=== PATIENT | female | born 1995 | race Caucasian/White ===

== ENCOUNTER → 2017-08-13 | Outpatient (CLI) | payer BC, MEDICAID | LOC: COL.RAD 13:47 | DX: O34.01 Maternal care for unspecified congenital malformation of uterus, first trimester (principal); Q51.3 Bicornate uterus; Z3A.10 10 weeks gestation of pregnancy ==

== ENCOUNTER 2018-01-31 21:31 | Outpatient (CLI) | payer MEDICAID ==
[~2018-01-31] VITALS: Ht 157.5 cm; Wt 71.8 kg
[2018-01-31 21:37] VITALS: PULSE 100
[2018-01-31 21:51] VITALS: BP 116/70; PULSE 100
[2018-01-31] MEDS ORDERED: PRENATAL VITAMI1 TA3 PO (21:58)
[2018-01-31] MEDS ORDERED: SLOW FE142 MG PO (21:59)
[2018-01-31] MEDS ORDERED: CALCIUM CARBON650 M2 (22:00)
[2018-01-31 22:15] VITALS: BP 105/66; PULSE 93
[2018-01-31 22:50] VITALS: BP 108/75; PULSE 96
[2018-01-31 23:15] VITALS: BP 110/70; BP 99/59; PULSE 86; PULSE 93
[2018-02-01 00:15] VITALS: BP 111/68; PULSE 92
== END 2018-02-01 00:39 | disposition home or self-care (01) ==
LOC: LDRO 21:31
DX: O34.03 Maternal care for unspecified congenital malformation of uterus, third trimester (principal); Z3A.34 34 weeks gestation of pregnancy
CPT/HCPCS: J0702; J7120

== ENCOUNTER 2018-03-01 05:35 | Inpatient (IN) | payer MEDICAID ==
[~2018-03-01] VITALS: Ht 158.8 cm; Wt 77.3 kg
[2018-03-01] VITALS (18 sets, daily range): BP systolic 107–137; BP diastolic 57–84; PULSE 84–116; TEMP 97.2–99.9
[~2018-03-01 05:35] MED LIST: CALCIUM CARBON650 M2; PRENATAL VITAMI1 TA3 PO; SLOW FE142 MG PO
[2018-03-01] MEDS ORDERED: COLACE 100100 MG/CAP PO (06:19)
[2018-03-01 06:28] LABS: BASO % 0.3 % (0.0-2.0); EOS # 0.1 (0.0-0.7); EOS % 1.2 % (0-4.0); GRAN # 8.2 (1.4-6.5); GRAN % 70.8 % (42.2-75.2); HEMOGLOBIN 10.9 g/dl (12.5-16.0); LYMPH # 2.3 (1.2-3.4); LYMPH % 20.1 % (20.0-51.0); MEAN CELL VOLUME 95 fl (80.0-100.0); MEAN CORPUSCULAR HEMOGLOBIN 33 pg (27.0-31.0); MEAN CORPUSCULAR HGB CONC 34 g/dl (33.0-37.0); MEAN PLATELET VOLUME 10.2 fl (7.4-10.4); MONO # 0.8 (0.1-0.6); PLATELET COUNT 265 K/mm3 (130-400); RED BLOOD COUNT 3.34 M/mm3 (4.10-5.30); REDCELL DISTRIBUTION WIDTH-CV 12.2 % (11.5-14.5)
[2018-03-01 06:29] LABS: HEMATOCRIT 31.8 % (37.0-47.0)
[2018-03-02 07:11] LABS: BASO % 0.4 % (0.0-2.0); EOS # 0.1 (0.0-0.7); EOS % 1.3 % (0-4.0); GRAN % 62.4 % (42.2-75.2); LYMPH # 3.2 (1.2-3.4); LYMPH % 28.6 % (20.0-51.0); MEAN CELL VOLUME 99 fl (80.0-100.0); MEAN CORPUSCULAR HGB CONC 34 g/dl (33.0-37.0); MEAN PLATELET VOLUME 9.8 fl (7.4-10.4); MONO # 0.8 (0.1-0.6); MONO % 6.8 % (1.7-9.3); PLATELET COUNT 224 K/mm3 (130-400); RED BLOOD COUNT 2.88 M/mm3 (4.10-5.30); REDCELL DISTRIBUTION WIDTH-CV 12.6 % (11.5-14.5)
[2018-03-02 07:15] LABS: HEMATOCRIT 28.4 % (37.0-47.0); HEMOGLOBIN 9.5 g/dl (12.5-16.0); MEAN CORPUSCULAR HEMOGLOBIN 33 pg (27.0-31.0)
[2018-03-02 08:02] VITALS: BP 118/70; PULSE 93
[2018-03-02 16:00] VITALS: BP 107/56; PULSE 88
[2018-03-02 20:45] VITALS: BP 129/78; PULSE 102; TEMP 98.8
[2018-03-03] MEDS ORDERED: PERCOCET 325 MG1 TA2 PO (08:02)
[2018-03-03] MEDS ORDERED: MOTRIN 800800 MG/TAB PO (08:02)
[2018-03-03 08:30] VITALS: BP 127/78; PULSE 84; TEMP 98.7
== END 2018-03-03 12:50 | disposition home or self-care (01) | DRG 788 ==
LOC: OB 05:35 → LDR 06:26 → OB 03-03 12:50
PROVIDERS: Obstetrics & Gynecology
PROC: 10D00Z1 Extraction of Products of Conception, Low, Open Approach (ICD-10-PCS; principal; 2018-03-01)
DX: O32.1XX0 Maternal care for breech presentation, not applicable or unspecified (principal); Z3A.38 38 weeks gestation of pregnancy; Z37.0 Single live birth; Q51.20 Other doubling of uterus, unspecified; Q51.3 Bicornate uterus; O99.02 Anemia complicating childbirth; D64.9 Anemia, unspecified; L25.8 Unspecified contact dermatitis due to other agents; O69.81X0 Labor and delivery complicated by cord around neck, without compression, not applicable or unspecified
CPT/HCPCS: J0690; J1885; J2175; J2270; J2370; J2405; J2590; J7120

== ENCOUNTER 2021-10-28 05:30 | Inpatient (IN) | payer MEDICAID ==
[~2021-10-28] VITALS: Ht 157.5 cm; Wt 79.5 kg
[2021-10-28] VITALS (18 sets, daily range): BP systolic 94–128; BP diastolic 57–88; PULSE 76–112; TEMP 97.6–98.6
[~2021-10-28 05:30] MED LIST changes: +ANUSOL-HC2.5% RC; +COLACE 100100 MG/CAP PO; +MOTRIN 800800 MG/TAB PO; +PERCOCET 325 MG1 TA2 PO
--- NOTE | 2021-10-28 05:35 | NUR ---
0535- PT PRESENTS TO LDR FOR SCHEDULED REPEAT , AMBULATORY TO ROOM 210. CHANGED INTO GOWN. 0556- EFM MONITORS X2 APPLIED. PLAN OF CARE DISCUSSED AND QUESTIONS ANSWERED. CONSENTS SIGNED. 0600- IV START TO RIGHT WRIST AFTER 5 ATTEMPTS. BLOOD DRAWN FOR LAB. LR INFUSING ORDERED.
[2021-10-28 06:37] LABS: BASO % 0.2 % (0.0-2.0); EOS % 0.4 % (0.0-4.0); GRAN # 5.8 K/mm3 (1.4-6.5); GRAN % 67.8 % (42.2-75.2); HEMOGLOBIN 11.4 g/dl (12.5-16.0); LYMPH # 2.1 K/mm3 (1.2-3.4); LYMPH % 24.4 % (20.0-51.0); MEAN CELL VOLUME 92 fl (80.0-100.0); MEAN CORPUSCULAR HEMOGLOBIN 31 pg (27-31); MEAN CORPUSCULAR HGB CONC 34 g/dl (33.0-37.0); MEAN PLATELET VOLUME 9.9 fl (7.4-10.4); MONO # 0.6 K/mm3 (0.1-0.6); MONO % 6.7 % (1.7-9.3); PLATELET COUNT 275 K/mm3 (130-400); RED BLOOD COUNT 3.63 M/mm3 (4.10-5.30); REDCELL DISTRIBUTION WIDTH-CV 12.5 % (11.5-14.5)
[2021-10-28 06:43] LABS: HEMATOCRIT 33.5 % (37.0-47.0)
[2021-10-28] MEDS ORDERED: PERCOCET 325 MG1 TA2 PO (06:55)
[2021-10-28] MEDS ORDERED: MOTRIN 800800 MG/TAB PO (06:55)
[2021-10-29 04:00] VITALS: BP 104/60; PULSE 82; TEMP 98.4
[2021-10-29 08:15] VITALS: BP 133/71; PULSE 82; TEMP 97.8
--- NOTE | 2021-10-29 09:07 | NUR ---
Initial visit; Patient thanked David for offering congratulations and God's blessings for the of her son. Grommet Machine Operator thanked mom for choosing [facility].
[2021-10-29 17:15] VITALS: BP 107/67; PULSE 67; TEMP 97.8
[2021-10-29 21:00] VITALS: BP 114/66; PULSE 80; TEMP 98.1
[2021-10-30 07:00] VITALS: BP 113/76; PULSE 81; TEMP 97.6
--- NOTE | 2021-10-30 10:33 | NUR ---
DISCHARGE TEACHING COMPLETED. EDUCATED ON FOLLOW UP APPOINTMENTS AND PRESCRIPTIONS. QUESTIONS INVITED AND ANSWERED.
== END 2021-10-30 11:05 | disposition home or self-care (01) | DRG 788 ==
LOC: OB 05:30
PROVIDERS: ADMIT Obstetrics & Gynecology
PROC: 10D00Z1 Extraction of Products of Conception, Low, Open Approach (ICD-10-PCS; principal; 2021-10-28)
DX: O34.211 Maternal care for low transverse scar from previous cesarean delivery (principal); O24.420 Gestational diabetes mellitus in childbirth, diet controlled; Z3A.39 39 weeks gestation of pregnancy; Z37.0 Single live birth; O34.03 Maternal care for unspecified congenital malformation of uterus, third trimester; G89.29 Other chronic pain; O99.892 Other specified diseases and conditions complicating childbirth; R10.2 Pelvic and perineal pain; O32.1XX0 Maternal care for breech presentation, not applicable or unspecified; Z86.16 Personal history of COVID-19; Z90.89 Acquired absence of other organs; Q51.3 Bicornate uterus
CPT/HCPCS: J0690; J1885; J2175; J2250; J2370; J2405; J2590; J7120